=== PATIENT | female | born 1980 | race Caucasian/White ===

== ENCOUNTER → 2016-10-17 | Outpatient (CLI) | payer BC, OTHER ==
[~2016-10-17] MED LIST: FOLI1TAB7 PO; PRENTAB26 PO; VALA500T60 PO
[2016-10-17 20:46] LABS: URINE APPEARANCE CLEAR (CLEAR); URINE BILIRUBIN NEG (NEG); URINE COLOR YELLOW; URINE EPITHELIAL CELL AUTO >30 /lpf (0-5); URINE NITRITE NEG (NEG); URINE SPECIFIC GRAVITY 1.015 (1.000-1.030); UROBILINOGEN NEG (NEG)
[2016-10-17 20:56] LABS: MANUAL MICROSCOPIC REQUIRED? NO; REVIEW REQ? NO
== END | disposition home or self-care (01) ==
LOC: C.LABSPEC 12:10
PROVIDERS: ATTEND Obstetrics & Gynecology
DX: O09.523 Supervision of elderly multigravida, third trimester (principal)

== ENCOUNTER → 2016-10-17 | Outpatient (CLI) | payer BC ==
[2016-10-17 16:57] LABS: GTGD 50 Grams
== END | disposition home or self-care (01) ==
LOC: C.LAB1850 14:24
PROVIDERS: ATTEND Obstetrics & Gynecology
DX: O09.523 Supervision of elderly multigravida, third trimester (principal)

== ENCOUNTER 2016-11-30 16:53 | Outpatient (CLI) | payer BC | END 2016-11-30 17:50 | disposition home or self-care (01) | LOC: C.LD 16:53 → C.OPB 16:53 | PROVIDERS: ATTEND Obstetrics & Gynecology | DX: O36.8130 Decreased fetal movements, third trimester, not applicable or unspecified (principal); Z3A.39 39 weeks gestation of pregnancy ==

== ENCOUNTER → 2016-12-19 | Outpatient (CLI) | payer BC | END | disposition home or self-care (01) | LOC: C.LABSPEC 17:30 | PROVIDERS: ATTEND Obstetrics & Gynecology | DX: O09.523 Supervision of elderly multigravida, third trimester (principal) ==

== ENCOUNTER 2017-01-05 03:06 | Inpatient (IN) | payer BC ==
[~2017-01-05] VITALS: Ht 170.2 cm; Wt 90.5 kg
[2017-01-12 08:36] VITALS: Ht 170.2 cm; Wt 90.5 kg
[2017-01-12] MEDS ORDERED: LACTATED RINGER'S 1000ML 1,000 ML IV PRN (09:09)
[2017-01-12] MEDS ORDERED: LACTATED RINGER'S 1000ML 500 ML IV PRN ×3 (09:13→14:37)
[2017-01-12] MEDS ORDERED: OXYTOCIN 30 UNITS/500ML NSS IV PRN ×2 (09:15→20:30)
[2017-01-12] MEDS ORDERED: LACTATED RINGER'S 1000ML 1,000 ML IV SCH (09:30)
[2017-01-12 09:44] LABS: HEMATOCRIT 32.1 % (37-47); MEAN CELL VOLUME 84.7 fL (80-100); MEAN CORPUSCULAR HEMOGLOBIN 27.7 pg (25-34); MEAN CORPUSCULAR HGB CONC 32.7 g/dl (32-36); MEAN PLATELET VOLUME 10.9 fL (7.4-10.4); PLATELET COUNT 160 K/uL (130-400); RED BLOOD COUNT 3.79 M/uL (4.2-5.4); WHITE BLOOD COUNT 8.58 K/uL (4.8-10.8)
[2017-01-12] MEDS ORDERED: PRENTAB26 PO (12:26)
[2017-01-12] MEDS ORDERED: FOLI1TAB7 PO (12:31)
[2017-01-12] MEDS ORDERED: VALA500T60 PO (12:32)
[2017-01-12] MEDS ORDERED: BUPIVACAINE 0.25% 30 ML VIAL ONE (13:55)
[2017-01-12] MEDS ORDERED: FENTANYL CITRATE INJ 50 MCG/1 ML 2 ML VIAL ONE (13:56)
[2017-01-12] MEDS ORDERED: EpHEDrine SULFATE INJ 50 MG/ML AMP ONE (13:56)
[2017-01-12] MEDS ORDERED: FENTANYL 2MCG/ML ROPIV 1.25MG/ML 100ML BAG EPI ONE (13:56)
[2017-01-12] MEDS: SIMETHICONE 80 MG CHEW PO PRN (14:30)
[2017-01-12] MEDS ORDERED: FENTANYL 2MCG/ML ROPIV 1.25MG/ML 100ML BAG EPI PRN (14:45)
[2017-01-12] MEDS ORDERED: EpHEDrine SULFATE INJ 50 MG/ML AMP IV PRN (14:45)
[2017-01-12] MEDS ORDERED: NALOXONE HCL INJ 0.4 MG/1 ML VIAL/CARP IV PRN (14:45)
[2017-01-12] MEDS ORDERED: ACETAMINOPHEN 325 MG TAB PO PRN ×2 (17:30→20:30)
[2017-01-12] MEDS ORDERED: SUPERCREAM 0.870 % 15GM JAR EXT PRN (20:30)
[2017-01-12] MEDS ORDERED: BENZOCAINE 20% AER SPR 82.5 GM CAN EXT PRN (20:30)
[2017-01-12] MEDS ORDERED: ACETAMINOPHEN/CODEINE 300/30MG TAB PO PRN ×2 (20:30)
[2017-01-12] MEDS ORDERED: LANOLIN OINT EXT PRN ×2 (20:30)
[2017-01-12 21:30] VITALS: BP 117/78; PULSE 92; TEMP 36.8
[2017-01-12 22:05] VITALS: BP 117/75; TEMP 36.9
--- NOTE | 2017-01-12 22:08 | DELIVERY SUMMARY ---
DATE OF OPERATION: 01/12/2017 Patient is a 36-derrick-old 3, para 2-0-0-1, EDC of 01/05/2017, who presents for postdates induction. She presented after having her cervical Domínguez placed on the evening of 01/11/2017. The Domínguez was removed upon arrival back in labor and delivery and Pitocin augmentation was begun. She progressed to full dilation under epidural analgesia and pushed effectively over an intact perineum for delivery of a viable female . Mouth and nasopharynx were suctioned on the perineum. The rest of the infant delivered with ease and was placed on the mother's abdomen for further attention and stimulation. There was vigorous crying and the infant was moving all four limbs. The cord was then clamped and cut and the placenta was expressed intact with a 3-vessel cord. A first-degree perineal laceration was repaired with 3-0 chromic in the usual fashion. Estimated blood loss was 250 mL. Mother and infant were doing well after delivery. I attest to the content of the Intraoperative Record and any orders documented therein. Any exceptio ns are noted below.
[2017-01-12] MEDS: IBUPROFEN 600 MG TAB PO PRN (23:27)
--- NOTE | 2017-01-13 01:17 | Anesthesia Procedure Note ---
Anesthesia Epidural Removal Nt Date & Time Jan 13, 2017 at 01:16 Vital Signs Pain Intensity: 3.0 Vital Signs Past 12 Hours Date Time Temp Pulse Resp B/P Pulse Ox O2 Delivery O2 Flow Rate FiO2 01/12/17 22:05 36.9 20 117/75 01/12/17 21:30 Room Air 01/12/17 21:30 36.8 92 20 117/78 Notes Mental Status: alert / awake / arousable, participated in evaluation Nausea / Vomiting: adequately controlled Pain: adequately controlled Airway Patency, RR, SpO2: stable & adequate BP & HR: stable & adequate Hydration State: stable & adequate Neuraxial Anesthesia: was administered Anesthetic Complications: no major complications apparent, pt satisfied with anesthetic care Epidural: removed without complications, with tip intact
[2017-01-13 03:45] VITALS: BP 114/70; PULSE 75; TEMP 36.6
[2017-01-13] MEDS: IBUPROFEN 600 MG TAB PO PRN ×3 (06:02→23:22)
[2017-01-13 06:35] LABS: HEMATOCRIT 30.1 % (37-47)
--- NOTE | 2017-01-13 07:34 | Progress Note ---
Subjective Jan 13, 2017. Subjective conversation w/ patient, physical exam Ambulation: ambulating normally Voiding: no voiding problems Passing Gas: Yes Diet Tolerance: Regular Diet Lochia: Moderate Feeding Type: Breast Feeding Review of Systems Constitutional: No chills, No fatigue, No fever, No problem reported, No sweats , No weakness, No weight loss Breast: No breast lump, No breast pain, No change in shape, No nipple discharge , No problem reported, No see HPI Abdomen: No GI bleeding, No constipation, No diarrhea, No nausea, No pain, No problem reported, No vomiting Objective Vital Signs Date Time Temp Pulse Resp B/P Pulse Ox O2 Delivery O2 Flow Rate FiO2 01/13/17 03:45 36.6 75 14 114/70 01/13/17 00:10 Room Air 01/12/17 22:05 36.9 20 117/75 01/12/17 21:30 Room Air 01/12/17 21:30 36.8 92 20 117/78 Physical Exam General Appearance: WELL-APPEARING, NO APPARENT DISTRESS Abdomen: non tender, soft Fundus: Firm, Non-Tender, Relation to Umbilicus (2 below U) Extremities: no calf tenderness Laboratory Results Last 24 Hours Test 01/12/17 09:30 01/13/17 06:11 White Blood Count 8.58 K/uL Red Blood Count 3.79 M/uL Hemoglobin 10.5 g/dL 9.8 g/dL Hematocrit 32.1 % 30.1 % Mean Corpuscular Volume 84.7 fL Mean Corpuscular Hemoglobin 27.7 pg Mean Corpuscular Hemoglobin Concent 32.7 g/dl RDW Standard Deviation 48.2 fL RDW Coefficient of Variation 15.5 % Platelet Count 160 K/uL Mean Platelet Volume 10.9 fL Assessment and Plan Day#: 1 Continue Routine Care: expected recovery continue current care plan
[2017-01-13] MEDS: SIMETHICONE 80 MG CHEW PO PRN (08:05)
[2017-01-13] MEDS: DOCUSATE SODIUM 100 MG CAP PO SCH ×2 (08:06→20:27)
[2017-01-13] MEDS: PRENATAL VITAMIN TAB PO SCH (08:06)
[2017-01-13 08:20] VITALS: BP 100/64; PULSE 74; TEMP 36.8
[2017-01-13] MEDS: FERROUS SULFATE 325 MG TAB PO SCH (09:07)
[2017-01-13 12:00] VITALS: BP 127/84; PULSE 93; TEMP 36.7
[2017-01-13 16:00] VITALS: BP 117/78; PULSE 78; TEMP 36.8
[2017-01-13] MEDS ORDERED: BISACODYL 5 MG TABEC PO SCH (20:00)
[2017-01-13 23:25] VITALS: BP 125/79; PULSE 82; TEMP 36.4
[2017-01-14 08:05] VITALS: BP 127/82; PULSE 80; TEMP 36.6
[2017-01-14] MEDS: DOCUSATE SODIUM 100 MG CAP PO SCH (08:08)
[2017-01-14] MEDS: PRENATAL VITAMIN TAB PO SCH (08:08)
[2017-01-14] MEDS: FERROUS SULFATE 325 MG TAB PO SCH (08:08)
[2017-01-14] MEDS: IBUPROFEN 600 MG TAB PO PRN (08:11)
--- NOTE | 2017-01-14 08:36 | Progress Note ---
Subjective Jan 14, 2017. Subjective conversation w/ patient, physical exam Ambulation: ambulating normally Voiding: no voiding problems Passing Gas: Yes Diet Tolerance: Regular Diet Lochia: Moderate Feeding Type: Breast Feeding Review of Systems Constitutional: No chills, No fever Respiratory: No cough Cardiac: No chest pain Abdomen: No nausea, No vomiting Objective Vital Signs Date Time Temp Pulse Resp B/P Pulse Ox O2 Delivery O2 Flow Rate FiO2 01/13/17 23:25 Room Air 01/13/17 23:25 36.4 82 18 125/79 Room Air 01/13/17 16:00 36.8 78 20 117/78 01/13/17 12:00 36.7 93 20 127/84 Physical Exam General Appearance: WELL-APPEARING, NO APPARENT DISTRESS Respiratory/Chest: no respiratory distress, no accessory muscle use Cardiovascular: no edema Abdomen: non tender, soft Fundus: Firm Extremities: no calf tenderness Assessment and Plan Day#: 2 Continue Routine Care: D/C home today, instructions reviewed
--- NOTE | 2017-01-14 08:37 | Discharge Instructions ---
Discharge Instructions Date of Service Jan 14, 2017. Admission Reason for Admission: Induction Discharge Discharge Diagnosis / Problem: Vaginal Delivery Discharge Goals Goal(s): Routine recovery after delivery Activity Recommendations Activity Limitations: per Instructions/Follow-up section . Instructions / Follow-Up Instructions / Follow-Up ACTIVITY RECOMMENDATIONS: * Gradual return to full activity over the next 2-3 weeks. * No lifting - nothing heavier than baby over the next 2-3 weeks. * Do not engage in vigorous exercise, sexual activity or sports until cleared by your physician. * Do not drive or operate any motorized equipment until cleared by your physician. * You may shower/bathe daily. MEDICATIONS: For discomfort or pain, you may use Acetaminophen (Tylenol), Ibuprofen (Advil), or Naproxen (Aleve) following the package directions. For constipation you may use Colace following the package directions. BREAST CARE: If you are not breast feeding: * Wear a supportive bra 24 hours a day for one to two weeks. * Avoid stimulating your breasts and nipples as much as possible during the first few weeks after delivery. * When taking a shower, have the warm water hit your back, not breasts. * When your breasts feel full, apply ice packs. Usually three to four times a day helps ease the discomfort. * Take a mild pain medication (Tylenol / Motrin) when you are uncomfortable. If breast feeding: * Use breast milk to lubricate nipples. Lansinoh cream may be used for sore nipples. You do not need to remove cream prior to breast feeding. If using a different brand of cream, check the label for directions regarding removal of cream prior to nursing. * Wear a supportive bra. * If having problems with breasts or breast feeding, call a weight loss sales consultant or your health care provider. EPISIOTOMY CARE: After delivery, if you have an episiotomy (stitches), the following steps will ease discomfort and aid healing. * For the first 24 hours after delivery, place ice packs next to your episiotomy to help reduce swelling. * After the first 24 hour-period, sitz baths, either portable or in the tub, are suggested. A shower with a shower arm sprayed over the episiotomy may be comforting. * Shavon care should be done after each voiding and bowel movement. Squirt warm water from a plastic bottle over the perineum (region of the body between the anus and urinary opening) and pat dry. * Use Dermoplast to ease discomfort. Shake container. [place] directly over the episiotomy. Place a Tucks on a clean sanitary pad next to your episiotomy. SPECIAL CARE INSTRUCTIONS: When you are discharged from the hospital, it is important for you to follow the instructions listed below: * During the first week at home, you should be able to care for yourself and your baby. In addition, the usual light household activities are encouraged. * Limit your activities to the way you feel. Do not try to clean the house or move furniture. Be sensible. * If you actively engage in sports and have done so up until the time of your delivery, you may resume these activities as soon as you feel able. This may take up to one month or even longer. Use good judgment. * Continue to take your vitamins for at least six weeks after the of your baby. * Your diet need not be limited unless you were on a special diet before your delivery. Breast-feeding mothers need around 2500 calories per day and at least 64-80 ounces of fluid per day (8 to 10 glasses). * You should eat foods from the four major food groups. Crash diets or fad diets are to be avoided. Eating lean meats, fresh fruits and vegetables, low-fat dairy products, high fiber foods and a regular exercise program, will help you get back to your pre- weight without putting your health at risk. * Constipation is sometimes a problem after delivery. Take a mild laxative as needed. If breast feeding, Milk of Magnesia is acceptable to use. You may use a suppository or Fleets enema if no episiotomy. * A daily shower or tub bath is suggested. Be sure to thoroughly and gently dry the perineum. * A bloody vaginal discharge will usually continue until around four weeks post . A small amount of bleeding may continue for as long as six weeks. Vaginal discharge changes from the bright red bleeding after delivery to pink then brownish and finally yellowish-pink before becoming white and disappearing. * Bleeding may increase with activity. Your first period may come in 4-8 weeks. If you are breast feeding, your period may be delayed even longer. * Jordan (sex) can begin whenever both you and your partner feel comfortable and do not have any form of genital infection. It is recommended that you wait at least six weeks for internal and external healing to occur. If you have questions, please talk to your health care practitioner. A condom should be used to prevent infection and . * Foreplay, gentle intercourse and lubrication is very important the first several times to prevent pain. A water-based lubricant such as K-Y jelly or Astroglide may be used. * If you have RH negative blood and your baby is RH positive, you will receive RHOGAM by injection prior to discharge. The nurse will give you a card to keep with you that has the date and place that you received RHOGAM after delivery. * During your care, you had a Rubella screen done to check for the presence of rubella antibodies in your blood. If your test was negative, you will receive a Rubella vaccine prior to discharge. This vaccine may cause a fever, soreness at the injection site and flu-like symptoms. If these symptoms persist, notify your health care practitioner. is not advised for one month after a Rubella vaccine. * Verbalizes understanding of car seat law as reviewed with patient nursing. * Car Seat hand-out given and reviewed with patient by nursing. * Shaken baby information reviewed with patient by nursing. Call you doctor if: * Heavy bleeding (saturating several pads an hour) or passing clots the size of your fist. * A fever >101 degrees F (38.3 degrees C) on two occasions four hours apart and /or chills. * Unusual pain in the pelvic or vaginal areas. * "Baby Blues" lasting longer than two weeks. If you have any questions or concerns, call your health care practitioner at . FOLLOW UP VISIT: * Please call the office at to schedule a 6 week examination. It is important you keep this appointment. It is important for you to make arrangements for either yearly or twice yearly check-ups thereafter. Current Hospital Diet Patient's current hospital diet: Regular OB Diet Discharge Diet Recommended Diet: Regular Diet Pending Studies Studies pending at discharge: no Medical Emergencies . Who to Call and When: Medical Emergencies: If at any time you feel your situation is an emergency, please call 911 immediately. . Non-Emergent Contact Non-Emergency issues call your: Primary Care Provider . . "Provider Documentation" section prepared by Courtney Barreto. VTE Core Measure Inpt VTE Proph given/why not?: Treatment not indicated
[2017-01-14 12:15] VITALS: BP_DIAS 82; PULSE 80; TEMP 36.6
== END 2017-01-14 12:30 | disposition home or self-care (01) | DRG 775 ==
LOC: C.LD 01-12 07:46 → C.OBG 01-12 21:13
PROVIDERS: ADMIT Obstetrics & Gynecology; ATTEND Obstetrics & Gynecology
PROC: 0HQ9XZZ Repair Perineum Skin, External Approach (ICD-10-PCS; principal; 2017-01-12)
PROC: 10E0XZZ Delivery of Products of Conception, External Approach (ICD-10-PCS; principal; 2017-01-12)
DX: O48.0 Post-term pregnancy (principal); O70.0 First degree perineal laceration during delivery; Z3A.41 41 weeks gestation of pregnancy; Z37.0 Single live birth

== ENCOUNTER 2017-01-11 18:09 | Outpatient (CLI) | payer BC ==
[~2017-01-11] VITALS: Ht 170.2 cm; Wt 90.5 kg
[2017-01-11 20:14] VITALS: Ht 170.2 cm; Wt 90.5 kg
[2017-01-12] MEDS ORDERED: PRENTAB26 PO (12:26)
[2017-01-12] MEDS ORDERED: FOLI1TAB7 PO (12:31)
[2017-01-12] MEDS ORDERED: VALA500T60 PO (12:32)
== END 2017-01-11 20:39 | disposition home or self-care (01) ==
LOC: C.LD 18:09 → C.OPB 18:09
PROVIDERS: ATTEND Obstetrics & Gynecology
DX: O48.0 Post-term pregnancy (principal); Z3A.40 40 weeks gestation of pregnancy